=== PATIENT | female | born 1990 | race Caucasian/White ===

== ENCOUNTER → 2017-07-25 | Outpatient (CLI) | payer OTHER ==
[~2017-07-25] MED LIST: MOTR200T44 PO; STUACAP PO; TYLE167L PO
--- NOTE | 2017-07-25 14:47 | REP ---
OBSTETRIC SONOGRAPHY: HISTORY: Supervision of for anatomy followup. Third trimester. FINDINGS: Scanning through the gravid uterus demonstrates a viable single intrauterine gestation in a cephalic lie. motion is observed and heart rate is recorder 143 beats per minute. An anterior grade 1 placenta is seen without evidence of previa or abruption. Closed cervical length measured transabdominally is 4.0 cm. No extrauterine abnormality is observed. Umbilical cord is seen draping across the neck. The following anatomic structures are identified today and felt to be unremarkable: cranium, cavum, cerebellum and posterior fossa, lungs, left and right ventricular cardiac outflow tract views, diaphragm, left-sided stomach, three-vessel cord, kidneys and bladder, spine. The following additional anatomic structures are less than optimally seen due to position and advanced gestational age: Choroid plexus, facial profile, four-chamber heart view, abdominal wall cord insertion, and upper and lower extremities. Biometry Chart: BPD 7.4 cm = 29 weeks 5 days HC 27.5 cm = 30 weeks 1 day AC 26.5 cm = 30 weeks 5 days FL 6.1 cm = 31 weeks 5 days HL 5.4 cm = 31 weeks 4 days HC/AC ratio normal 1.04. Cephalic index normal 0.74. Estimated weight 1654 grams, 3 pounds 10 ounces, 48th percentile for 30 weeks 4 days. ZENON normal 12.8 cm. S/D ratio in the umbilical cord artery by Doppler is normal at 2.58. IMPRESSION: Viable single intrauterine gestation at 30 weeks 5 days by today's sonographic criteria. MAC by today's sonography is September 28, 2017. Signed by John Chow MD 07/25/2017 04:17 P
== END ==
LOC: M RAD 12:23
PROVIDERS: ATTEND Advanced Practice Midwife
DX: Z36.89 Encounter for other specified antenatal screening (principal); Z3A.30 30 weeks gestation of pregnancy

== ENCOUNTER → 2017-07-28 | Outpatient (REF) | payer OTHER | LOC: M LAB REF 17:05 | PROVIDERS: ATTEND Advanced Practice Midwife | DX: Z34.83 Encounter for supervision of other normal pregnancy, third trimester (principal) ==

== ENCOUNTER 2017-08-30 12:56 | Outpatient (CLI) | payer OTHER | END 2017-08-30 15:00 | disposition home or self-care (01) | LOC: M LDO 12:56 | DX: O99.89 Other specified diseases and conditions complicating pregnancy, childbirth and the puerperium (principal); M54.5 Low back pain; Z87.59 Personal history of other complications of pregnancy, childbirth and the puerperium; O99.343 Other mental disorders complicating pregnancy, third trimester; O99.513 Diseases of the respiratory system complicating pregnancy, third trimester; Z3A.35 35 weeks gestation of pregnancy ==

== ENCOUNTER → 2017-08-30 | Outpatient (CLI) | payer OTHER ==
[2017-08-30 12:43] LABS: BASO # 0.1 10^3/uL (0.0-0.2); BASO % 0.5 % (0.0-1.0); EOS # 0.2 10^3/uL (0.0-0.50); EOS % 1.5 % (0.0-3.0); HEMATOCRIT 38.7 % (36.0-47.0); HEMOGLOBIN 12.9 g/dl (12.0-16.0); IMMATURE GRANULOCYTE # 0.3 10^3/uL (0-0); IMMATURE GRANULOCYTE % 2.3 % (0-0); LYMPH # 1.9 10^3/uL (1.5-6.5); LYMPH % 16.5 % (24.0-44.0); MEAN CORPUSCULAR HEMOGLOBIN 30.1 pg (27.0-33.0); MEAN CORPUSCULAR HGB CONC 33.3 g/dl (32.0-36.5); MEAN CORPUSCULAR VOLUME 90.4 fl (80.0-96.0); MONO % 8.5 % (0.0-5.0); NEUTROPHILS % 70.7 % (36.0-66.0); PLATELET COUNT, AUTOMATED 190 10^3/uL (150-450); RED BLOOD COUNT 4.28 10^6/uL (4.00-5.40); RED CELL DISTRIBUTION WIDTH 13.9 % (11.5-14.5); WHITE BLOOD COUNT 11.3 10^3/uL (4.0-10.0)
[2017-08-30 12:59] LABS: TOTAL PROTEIN,RANDOM URINE 11.1 MG/DL (0.0-12.0)
[2017-08-30 13:05] LABS: ALT/SGPT 23 U/L (12-78); AST/SGOT 16 U/L (7-37); BILIRUBIN,TOTAL 0.3 MG/DL (0.2-1.0); CREATININE FOR GFR 0.58 MG/DL (0.55-1.02); GLOMERULAR FILTRATION RATE > 60.0 (>60); LDH LACTATE DEHYDROGENASE 144 U/L (84-246); URIC ACID 3.7 MG/DL (2.6-6.0)
== END ==
LOC: M LAB 12:22
DX: O14.95 Unspecified pre-eclampsia, complicating the puerperium (principal)
CPT/HCPCS: 84460

== ENCOUNTER → 2017-09-01 | Outpatient (REF) | payer OTHER ==
[2017-09-01 18:36] LABS: TOTAL PROTEIN,RANDOM URINE 12.5 MG/DL (0.0-12.0)
== END ==
LOC: M LAB REF 16:56
DX: Z34.83 Encounter for supervision of other normal pregnancy, third trimester (principal)

== ENCOUNTER → 2017-09-04 | Outpatient (REF) | payer OTHER, MEDICAID | LOC: M LAB REF 13:09 | DX: Z34.83 Encounter for supervision of other normal pregnancy, third trimester (principal) ==

== ENCOUNTER → 2017-09-04 | Outpatient (CLI) | payer OTHER | LOC: M RAD 12:21 | DX: Z34.83 Encounter for supervision of other normal pregnancy, third trimester (principal); Z3A.36 36 weeks gestation of pregnancy | CPT/HCPCS: 76816 ==

== ENCOUNTER 2017-09-21 06:11 | Inpatient (IN) | payer OTHER, MEDICAID ==
[2017-09-21] MEDS: LACTATED RINGER'S 1000 ML IV (07:26)
[2017-09-21] MEDS: LR 1,000 ML IV (07:59)
[2017-09-21 08:11] LABS: HEMATOCRIT 39.9 % (36.0-47.0); HEMOGLOBIN 13.5 g/dl (12.0-16.0); MEAN CORPUSCULAR HEMOGLOBIN 30.3 pg (27.0-33.0); MEAN CORPUSCULAR HGB CONC 33.8 g/dl (32.0-36.5); MEAN CORPUSCULAR VOLUME 89.5 fl (80.0-96.0); PLATELET COUNT, AUTOMATED 195 10^3/uL (150-450); RED BLOOD COUNT 4.46 10^6/uL (4.00-5.40); RED CELL DISTRIBUTION WIDTH 13.8 % (11.5-14.5); WHITE BLOOD COUNT 12.3 10^3/uL (4.0-10.0)
[2017-09-21] MEDS: PRENATAL VITAMINS CHEWABLE TABLET PO (09:00)
[2017-09-21] MEDS: OXYTOCIN DRIP 30 UNITS in APPROPRIATE DILUENT 1 EA IV ×2 (10:27→14:54)
[2017-09-21] MEDS: PROMETHAZINE INJ 25 MG/ML VIAL (J2550) IV (11:32)
[2017-09-21] MEDS: BUTORPHANOL 2 MG/ML INJ (J0595) IV (11:33)
[2017-09-21] MEDS ORDERED: OXYTOCIN 30 UNITS IN 0.9% NaCl 500ML IV BAG (J2590) As Ordered (14:40)
[2017-09-21] MEDS ORDERED: RHOGAM 300 MCG (1500 IU) INJ (J2790) IM (15:00)
[2017-09-21] MEDS ORDERED: IBUPROFEN 800 MG TAB PO (15:00)
[2017-09-21] MEDS ORDERED: ONDANSETRON 4MG/2ML VIAL (J2405) IV (15:00)
[2017-09-21] MEDS ORDERED: DIBUCAINE 1% OINTMENT 30GM TOP (15:00)
[2017-09-21] MEDS ORDERED: ACETAMINOPHEN 500 MG TAB PO (15:00)
[2017-09-21] MEDS ORDERED: MEASLES,MUMPS,RUBELLA VACCINE INJ (MMR-II) (90707) SC (15:00)
[2017-09-21] MEDS ORDERED: DOCUSATE SODIUM 100 MG CAP PO (15:00)
[2017-09-21] MEDS: LIDOCAINE 1% MDV INJ 50 ML VIAL INFIL (15:00)
[2017-09-21] MEDS ORDERED: PROMETHAZINE 25 MG TAB PO (15:00)
[2017-09-21] MEDS: miSOPROStol 200 MCG TAB (S0191) PR (15:00)
[2017-09-22] MEDS: FAMOTIDINE 20 MG TAB PO ×2 (01:37→08:07)
[2017-09-22 06:42] LABS: HEMATOCRIT 32.1 % (36.0-47.0); MEAN CORPUSCULAR HGB CONC 33.3 g/dl (32.0-36.5); MEAN CORPUSCULAR VOLUME 89.9 fl (80.0-96.0); PLATELET COUNT, AUTOMATED 177 10^3/uL (150-450); RED BLOOD COUNT 3.57 10^6/uL (4.00-5.40); RED CELL DISTRIBUTION WIDTH 13.9 % (11.5-14.5); WHITE BLOOD COUNT 15.7 10^3/uL (4.0-10.0)
[2017-09-22 06:49] LABS: HEMOGLOBIN 10.7 g/dl (12.0-16.0)
[2017-09-22] MEDS: PRENATAL VITAMINS CHEWABLE TABLET PO (09:00)
== END 2017-09-22 19:00 | disposition home or self-care (01) | DRG 560 ==
LOC: M LDO 06:11 → M LDI 08:23 → M OBS 16:53
PROVIDERS: Obstetrics & Gynecology
PROC: 10E0XZZ Delivery of Products of Conception, External Approach (ICD-10-PCS; principal; 2017-09-21)
PROC: 0HQ9XZZ Repair Perineum Skin, External Approach (ICD-10-PCS; 2017-09-21)
DX: O42.02 Full-term premature rupture of membranes, onset of labor within 24 hours of rupture (principal); O72.1 Other immediate postpartum hemorrhage; Z3A.38 38 weeks gestation of pregnancy; O70.0 First degree perineal laceration during delivery; O69.1XX0 Labor and delivery complicated by cord around neck, with compression, not applicable or unspecified; Z37.0 Single live birth

== ENCOUNTER → 2018-05-22 | Outpatient (REF) | payer OTHER, SELFPAY ==
[2018-05-22 23:42] LABS: CHLAMYDIA DNA AMPLIFICATION NEGATIVE (NEGATIVE); GC DNA AMPLIFICATION NEGATIVE (NEGATIVE)
== END ==
LOC: M LAB REF 17:16
DX: Z11.3 Encounter for screening for infections with a predominantly sexual mode of transmission (principal)
CPT/HCPCS: 87591

== ENCOUNTER 2018-05-30 12:41 | Outpatient (RCR) | payer BC | END 2018-06-27 | LOC: M PT 12:41 | DX: N94.10 Unspecified dyspareunia (principal) ==

== ENCOUNTER 2018-07-04 13:22 | Outpatient (RCR) | payer BC | END 2018-07-27 | LOC: M PT 13:22 | DX: N94.10 Unspecified dyspareunia (principal) ==

== ENCOUNTER 2018-08-01 15:19 | Outpatient (RCR) | payer BC ==
[~2018-08-01 15:19] MED LIST changes: +COLA100C5 PO; +FAMO20TA PO; +PRENTAB9 PO; +RANI15TA PO; +TYLE325T5 PO
== END 2018-08-27 ==
LOC: M PT 15:19
PROVIDERS: ATTEND Advanced Practice Midwife
DX: N94.10 Unspecified dyspareunia (principal)

== ENCOUNTER → 2018-09-14 | Outpatient (CLI) | payer MEDICAID ==
--- NOTE | 2018-09-14 16:52 | REP ---
None of the pelvic ultrasound History: Pain The uterus is normal in echogenicity. The uterus measures 4.2 cm in transverse by 3.5 cm in AP by 8.7 cm in cephalocaudal dimensions. The right ovary measures 2.4 x 1.5 x 1.8 cm. Left ovary measures 3.6 x 1.5 x 2.3 cm. Small bilateral follicles are present in the ovaries. Blood flow is present in the ovaries. There is no fluid in the cul-de-sac. Impression: Normal pelvic ultrasound. Electronically Signed by Cirilo Reeder MD 09/14/2018 04:43 P
== END ==
LOC: M SMT 13:40
PROVIDERS: ATTEND Advanced Practice Midwife
DX: R10.2 Pelvic and perineal pain (principal)

== ENCOUNTER → 2018-11-17 | Outpatient (REF) | payer OTHER ==
[2018-11-18 20:40] LABS: CHLAMYDIA DNA AMPLIFICATION NEGATIVE (NEGATIVE); GC DNA AMPLIFICATION NEGATIVE (NEGATIVE)
== END ==
LOC: M SFHCLERA 17:49
PROVIDERS: ATTEND Physician Assistant
DX: R10.2 Pelvic and perineal pain (principal)

== ENCOUNTER → 2018-11-17 | Outpatient (CLI) | payer MEDICAID, OTHER ==
--- NOTE | 2018-11-18 09:54 | REP ---
KUB ABDOMEN AND PELVIS: KUB film of abdomen and pelvis performed. Moderate fecal material seen throughout the colon. There is no evidence of small bowel obstruction. No abnormal calcifications are seen in the abdomen or pelvis. Visualized osseous structures are unremarkable. IMPRESSION: Moderate fecal retention. No abnormal calcifications visualized. Electronically Signed by Juan Alberto Valenzuela MD 11/18/2018 10:39 A
== END ==
LOC: M LRY 17:51
PROVIDERS: ATTEND Physician Assistant
DX: R19.8 Other specified symptoms and signs involving the digestive system and abdomen (principal)

== ENCOUNTER → 2019-03-21 | Outpatient (CLI) | payer OTHER ==
[2019-03-22 11:43] LABS: BASO # 0.1 10^3/uL (0.0-0.2); BASO % 0.9 % (0.0-1.0); EOS # 0.1 10^3/uL (0.0-0.50); EOS % 2.4 % (0.0-3.0); HEMATOCRIT 39.4 % (36.0-47.0); HEMOGLOBIN 12.5 g/dl (12.0-15.5); LYMPH # 1.6 10^3/uL (1.5-6.5); LYMPH % 28.2 % (24.0-44.0); MEAN CORPUSCULAR HEMOGLOBIN 29.7 pg (27.0-33.0); MEAN CORPUSCULAR HGB CONC 31.7 g/dl (32.0-36.5); MEAN CORPUSCULAR VOLUME 93.6 fl (80.0-96.0); MONO # 0.5 10^3/uL (0.0-0.8); MONO % 9.2 % (0.0-5.0); NEUTROPHILS # 3.3 10^3/uL (1.8-7.7); NEUTROPHILS % 59.1 % (36.0-66.0); PLATELET COUNT, AUTOMATED 170 10^3/uL (150-450); RED BLOOD COUNT 4.21 10^6/uL (4.00-5.40); WHITE BLOOD COUNT 5.5 10^3/uL (4.0-10.0)
[2019-03-22 11:49] LABS: ALT/SGPT 30 U/L (12-78); BILIRUBIN,TOTAL 0.3 MG/DL (0.2-1.0); CREATININE FOR GFR 0.69 MG/DL (0.55-1.30); GLOMERULAR FILTRATION RATE > 60.0 (>60); LDH LACTATE DEHYDROGENASE 127 U/L (84-246); URIC ACID 2.6 MG/DL (2.6-6.0)
[2019-03-22 12:01] LABS: TOTAL PROTEIN,RANDOM URINE 124.2 MG/DL (0.0-12.0)
[2019-03-22 12:08] LABS: RUBELLA IgG QUALITATIVE IMMUNE (IMMUNE)
[2019-03-22 12:37] LABS: HEPATITIS C VIRUS ABY INDEX 0.1 INDEX (<0.8); HIV 1&2 SCREEN CENTAUR NEGATIVE (NEGATIVE)
[2019-03-22 13:14] LABS: CHLAMYDIA DNA AMPLIFICATION NEGATIVE (NEGATIVE); GC DNA AMPLIFICATION NEGATIVE (NEGATIVE)
== END ==
LOC: M SMT 15:22
PROVIDERS: ATTEND Advanced Practice Midwife
DX: Z34.81 Encounter for supervision of other normal pregnancy, first trimester (principal); Z3A.09 9 weeks gestation of pregnancy

== ENCOUNTER → 2019-04-23 | Outpatient (REF) | payer OTHER | LOC: M LAB REF 16:43 | PROVIDERS: ATTEND Advanced Practice Midwife | DX: Z34.81 Encounter for supervision of other normal pregnancy, first trimester (principal) ==

== ENCOUNTER → 2019-05-31 | Outpatient (CLI) | payer OTHER ==
--- NOTE | 2019-05-31 16:30 | REP ---
OB ULTRASOUND: Real-time sonographic evaluation of the gravid uterus performed. There is a single living intrauterine gestation, estimated gestational age 19 weeks 1 days, EDC 10/24/2019. Today's measurements indicate appropriate growth. BPD 43 mm = 19 weeks 0 days, 47th percentile HC 157 mm = 18 weeks 4 days, 34th percentile AC 140 mm = 19 weeks 3 days, 56th percentile FL 28 mm = 18 weeks 4 days, 37th percentile HC/AC ratio 1.12, within normal range. Estimated weight 266 grams, 42nd percentile. Cervix is closed and measures 3.5 cm in length. heart rate 155 beats per minute. SEEN/GROSSLY UNREMARKABLE Lateral ventricles yes Posterior fossa yes Upper lip yes Four-chamber heart yes LVOT yes RVOT yes Stomach yes Cord insertion yes Three vessel cord yes Kidneys yes Bladder yes Spine no position: Vertex. Placenta: Anterior and grade 0 with no previa or abruption. Amniotic fluid: Within normal limits. Electronically Signed by Juan Alberto Valenzuela MD 06/03/2019 04:59 P
== END ==
LOC: M RAD 09:15
PROVIDERS: ATTEND Advanced Practice Midwife
DX: Z34.82 Encounter for supervision of other normal pregnancy, second trimester (principal)

== ENCOUNTER 2019-07-18 18:37 | Outpatient (CLI) | payer OTHER ==
[~2019-07-18] VITALS: Ht 177.8 cm; Wt 77.0 kg
[2019-07-18 18:56] VITALS: BP 111/55
== END 2019-07-18 20:12 | disposition home or self-care (01) ==
LOC: M LDO 18:37
PROVIDERS: ATTEND Obstetrics & Gynecology
DX: O26.892 Other specified pregnancy related conditions, second trimester (principal); R10.2 Pelvic and perineal pain; Z3A.26 26 weeks gestation of pregnancy

== ENCOUNTER → 2019-07-29 | Outpatient (CLI) | payer OTHER ==
[2019-07-29 15:42] LABS: HEMATOCRIT 35.9 % (36.0-47.0); HEMOGLOBIN 11.7 g/dl (12.0-15.5); MEAN CORPUSCULAR HEMOGLOBIN 30.7 pg (27.0-33.0); MEAN CORPUSCULAR HGB CONC 32.6 g/dl (32.0-36.5); MEAN CORPUSCULAR VOLUME 94.2 fl (80.0-96.0); PLATELET COUNT, AUTOMATED 196 10^3/uL (150-450); RED BLOOD COUNT 3.81 10^6/uL (4.00-5.40); WHITE BLOOD COUNT 9.3 10^3/uL (4.0-10.0)
== END ==
LOC: M PLALAB 13:10
PROVIDERS: ATTEND Advanced Practice Midwife
DX: Z36.89 Encounter for other specified antenatal screening (principal); Z3A.00 Weeks of gestation of pregnancy not specified

== ENCOUNTER → 2019-09-20 | Outpatient (REF) | payer OTHER | LOC: M SFHCWAGY 17:15 | PROVIDERS: ATTEND Advanced Practice Midwife | DX: Z34.83 Encounter for supervision of other normal pregnancy, third trimester (principal) ==

== ENCOUNTER → 2019-10-04 | Outpatient (CLI) | payer OTHER | LOC: M PLALAB 11:21 | PROVIDERS: ATTEND Advanced Practice Midwife | DX: Z34.83 Encounter for supervision of other normal pregnancy, third trimester (principal); Z3A.00 Weeks of gestation of pregnancy not specified ==

== ENCOUNTER 2019-10-12 10:38 | Outpatient (CLI) | payer OTHER ==
[~2019-10-12] VITALS: Ht 177.8 cm; Wt 87.6 kg
[2019-10-12 11:02] VITALS: BP 118/58
[2019-10-12 11:45] LABS: APPEARANCE, URINE CLEAR (CLEAR); BACTERIA, URINE AUTO 1+ (NEGATIVE); BILIRUBIN, URINE AUTO NEGATIVE (NEGATIVE); BLOOD, URINE BLOOD NEGATIVE (NEGATIVE); COLOR, URINE YELLOW (YELLOW); GLUCOSE, URINE (UA) AUTO NEGATIVE (NEGATIVE); KETONE, URINE AUTO NEGATIVE (NEGATIVE); LEUKOCYTE ESTERASE, URINE AUTO NEGATIVE (NEGATIVE); MUCUS, URINE SMALL (NEGATIVE); NITRITE, URINE AUTO NEGATIVE (NEGATIVE); PROTEIN, URINE AUTO NEGATIVE (NEGATIVE); RBC, URINE AUTO 1 /HPF (0-3); SPECIFIC GRAVITY URINE AUTO 1.009 (1.002-1.035); SQUAMOUS EPITHELIAL CELL UR AU 0 /HPF (0-6); UROBILINOGEN, URINE AUTO 0.2 mg/dL (0.0-2.0); WBC, URINE AUTO 0 /HPF (0-3)
[2019-10-12 12:21] VITALS: BP 119/66
== END 2019-10-12 12:39 | disposition home or self-care (01) ==
LOC: M LDO 10:38
PROVIDERS: ATTEND Obstetrics & Gynecology
DX: O26.899 Other specified pregnancy related conditions, unspecified trimester (principal); M54.5 Low back pain; Z3A.38 38 weeks gestation of pregnancy

== ENCOUNTER 2019-10-26 06:20 | Inpatient (IN) | payer MEDICAID, OTHER ==
[2019-10-26] VITALS (24 sets, daily range): BP systolic 122–161; BP diastolic 56–94
[~2019-10-26] VITALS: Ht 177.8 cm; Wt 89.1 kg
[2019-10-26] MEDS ORDERED: PREN29TA4 PO (06:43)
[2019-10-26 10:21] LABS: HEMOGLOBIN 11.7 g/dl (12.0-15.5); MEAN CORPUSCULAR HEMOGLOBIN 29.8 pg (27.0-33.0); MEAN CORPUSCULAR HGB CONC 33.4 g/dl (32.0-36.5); MEAN CORPUSCULAR VOLUME 89.3 fl (80.0-96.0); PLATELET COUNT, AUTOMATED 179 10^3/uL (150-450); RED BLOOD COUNT 3.92 10^6/uL (4.00-5.40); WHITE BLOOD COUNT 11.9 10^3/uL (4.0-10.0)
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
[2019-10-26] MEDS ORDERED: LR 1,000 ML IV SCH (11:37)
[2019-10-26] MEDS ORDERED: OXYTOCIN DRIP 30 UNITS in IV 1 EA IV SCH (11:45)
[2019-10-26] MEDS ORDERED: PROMETHAZINE INJ 25 MG/ML VIAL (J2550) IV ONE (12:00)
[2019-10-26] MEDS ORDERED: BUTORPHANOL 2 MG/ML INJ (J0595) IV ONE (12:00)
[2019-10-26] MEDS ORDERED: DIBUCAINE 1% OINTMENT 30GM TOP PRN (19:45)
[2019-10-26] MEDS ORDERED: MEASLES,MUMPS,RUBELLA VACCINE INJ (MMR-II) (90707) SC SCH (19:45)
[2019-10-26] MEDS ORDERED: ONDANSETRON 4MG/2ML VIAL (J2405) IV PRN (19:45)
[2019-10-26] MEDS ORDERED: ACETAMINOPHEN TAB 650MG DOSE (2X325MG) PO PRN (19:45)
[2019-10-26] MEDS ORDERED: DOCUSATE SODIUM 100 MG CAP PO PRN (19:45)
[2019-10-26] MEDS ORDERED: METHYLERGONOVINE MALEATE 0.2 MG TAB PO PRN (19:45)
[2019-10-26] MEDS ORDERED: OXYTOCIN DRIP 30 UNITS in IV 1 EA IV ONE (19:45)
[2019-10-26] MEDS ORDERED: IBUPROFEN 600 MG TAB PO PRN (19:45)
[2019-10-26] MEDS ORDERED: RHOGAM 300 MCG (1500 IU) INJ (J2790) IM SCH (19:45)
[2019-10-26] MEDS ORDERED: IBUPROFEN 800 MG TAB PO PRN (19:45)
[2019-10-26] MEDS ORDERED: ACETAMINOPHEN 500 MG TAB PO PRN (19:45)
[2019-10-27 06:00] VITALS: BP 111/71
[2019-10-27] MEDS: PRENATAL VITAMINS CHEWABLE TABLET PO SCH (08:56)
[2019-10-27 18:00] VITALS: BP 123/71
[2019-10-28] MEDS ORDERED: IBUP80TA PO (04:30)
[2019-10-28] MEDS ORDERED: ACET-683 PO (04:30)
[2019-10-28 05:54] VITALS: BP 116/66
--- NOTE | 2019-10-28 07:11 | DN ---
DATE OF DELIVERY: 10/26/2019 PREDELIVERY DIAGNOSIS: Term labor. POSTDELIVERY DIAGNOSIS: Delivered. PROCEDURE: Spontaneous vaginal delivery. DATA TYPIST: Cirilo Lentz MD ANESTHESIA: None. ESTIMATED BLOOD LOSS: 300 mL. FINDINGS: 7-pound 1-ounce male with scores 8 and 9. DELIVERY SUMMARY: After a short second phase, the patient had spontaneous delivery of a 7-pound 1-ounce male with scores 8 and 9 under no delivery anesthesia. There was no nuchal cord. The shoulders delivered with ease. Placenta delivered spontaneously and appeared to be intact. The patient received intravenous (IV) pitocin after delivery of placenta. There were no vaginal lacerations present. Sponge counts were correct.
[2019-10-28] MEDS: PRENATAL VITAMINS CHEWABLE TABLET PO SCH (11:37)
== END 2019-10-28 14:45 | disposition home or self-care (01) | DRG 560 ==
LOC: M LDO 06:20 → M LDI 09:24 → M OBS 21:48
PROVIDERS: ADMIT Specialist; ATTEND Specialist
PROC: 10E0XZZ Delivery of Products of Conception, External Approach (ICD-10-PCS; principal; 2019-10-26)
DX: O48.0 Post-term pregnancy (principal); Z3A.40 40 weeks gestation of pregnancy; Z37.0 Single live birth

== ENCOUNTER → 2020-04-22 | Outpatient (CLI) | payer OTHER ==
[~2020-04-22] MED LIST changes: +ACET-683 PO; +IBUP80TA PO; +PREN29TA4 PO; +REGL10TA6 PO
[2020-04-22 16:05] LABS: BASO # 0.1 10^3/uL (0.0-0.2); BASO % 0.9 % (0.0-1.0); EOS # 0.3 10^3/uL (0.0-0.5); EOS % 4.1 % (0.0-3.0); HEMATOCRIT 40.4 % (36.0-47.0); HEMOGLOBIN 13.3 g/dl (12.0-15.5); LYMPH # 1.8 10^3/uL (1.5-5.0); LYMPH % 27.6 % (24.0-44.0); MEAN CORPUSCULAR HEMOGLOBIN 29.2 pg (27.0-33.0); MEAN CORPUSCULAR HGB CONC 32.9 g/dl (32.0-36.5); MEAN CORPUSCULAR VOLUME 88.8 fl (80.0-96.0); MONO # 0.7 10^3/uL (0.0-0.8); MONO % 9.8 % (0.0-5.0); NEUTROPHILS # 3.8 10^3/uL (1.5-8.5); NEUTROPHILS % 57.3 % (36.0-66.0); PLATELET COUNT, AUTOMATED 216 10^3/uL (150-450); RED BLOOD COUNT 4.55 10^6/uL (4.00-5.40); WHITE BLOOD COUNT 6.6 10^3/uL (4.0-10.0)
[2020-04-22 16:08] LABS: ALT/SGPT 23 U/L (12-78); BILIRUBIN,TOTAL 0.2 MG/DL (0.2-1.0); CREATININE FOR GFR 0.81 MG/DL (0.55-1.30); GLOMERULAR FILTRATION RATE > 60.0 (>60); LDH LACTATE DEHYDROGENASE 124 U/L (84-246); URIC ACID 3.1 MG/DL (2.6-6.0)
[2020-04-22 16:36] LABS: TOTAL PROTEIN,RANDOM URINE 14.8 MG/DL (0.0-12.0)
[2020-04-22 17:00] LABS: HEPATITIS C VIRUS ABY INDEX 0.3 INDEX (<0.8)
[2020-04-22 17:01] LABS: HIV 1&2 SCREEN CENTAUR NEGATIVE (NEGATIVE)
[2020-04-22 17:39] LABS: CHLAMYDIA DNA AMPLIFICATION NEGATIVE (NEGATIVE); GC DNA AMPLIFICATION NEGATIVE (NEGATIVE)
== END ==
LOC: M PLALAB 14:09
PROVIDERS: ATTEND Advanced Practice Midwife
DX: Z34.81 Encounter for supervision of other normal pregnancy, first trimester (principal); Z36.89 Encounter for other specified antenatal screening

== ENCOUNTER 2020-05-04 22:05 | Emergency (ER) | payer OTHER ==
[~2020-05-04] VITALS: Ht 177.8 cm; Wt 86.0 kg
[~2020-05-04 22:05] MED LIST changes: -REGL10TA6 PO
[2020-05-04] MEDS ORDERED: METOCLOPRAMIDE INJ 10MG/2ML VIAL (J2765 PER 1) IV ONE (22:30)
[2020-05-04] MEDS ORDERED: NS 1,000 ML IV ONE (22:30)
[2020-05-04 22:50] LABS: BASO # 0.1 10^3/uL (0.0-0.2); BASO % 0.8 % (0.0-1.0); EOS # 0.1 10^3/uL (0.0-0.5); EOS % 1.7 % (0.0-3.0); HEMATOCRIT 38.9 % (36.0-47.0); HEMOGLOBIN 13.1 g/dl (12.0-15.5); LYMPH # 1.8 10^3/uL (1.5-5.0); LYMPH % 22.7 % (24.0-44.0); MEAN CORPUSCULAR HEMOGLOBIN 29.4 pg (27.0-33.0); MEAN CORPUSCULAR HGB CONC 33.7 g/dl (32.0-36.5); MEAN CORPUSCULAR VOLUME 87.2 fl (80.0-96.0); MONO # 0.6 10^3/uL (0.0-0.8); MONO % 7.8 % (0.0-5.0); NEUTROPHILS # 5.2 10^3/uL (1.5-8.5); NEUTROPHILS % 66.6 % (36.0-66.0); PLATELET COUNT, AUTOMATED 220 10^3/uL (150-450); RED BLOOD COUNT 4.46 10^6/uL (4.00-5.40); WHITE BLOOD COUNT 7.9 10^3/uL (4.0-10.0)
[2020-05-04 23:24] LABS: ALBUMIN 3.7 GM/DL (3.2-5.2); ALT/SGPT 22 U/L (12-78); BILIRUBIN,DIRECT 0.2 MG/DL (0.0-0.2); BILIRUBIN,TOTAL 0.4 MG/DL (0.2-1.0); BLOOD UREA NITROGEN 8 MG/DL (7-18); CARBON DIOXIDE LEVEL 25 MEQ/L (21-32); CHLORIDE LEVEL 104 MEQ/L (98-107); CREATININE FOR GFR 0.69 MG/DL (0.55-1.30); GLOMERULAR FILTRATION RATE > 60.0 (>60); GLUCOSE, FASTING 89 MG/DL (70-100); HCG, SERUM QUANTITATIVE 109968 MIU/ML; LIPASE 60 U/L (73-393); POTASSIUM SERUM 3.6 MEQ/L (3.5-5.1); SODIUM LEVEL 134 MEQ/L (136-145); TOTAL PROTEIN 7.4 GM/DL (6.4-8.2)
--- NOTE | 2020-05-04 23:32 | REPVR ---
PROCEDURE INFORMATION: Exam: US First Trimester, Transabdominal Exam date and time: 05/04/2020 11:20 PM Age: 29 years old Clinical indication: complicated by abdominal or pelvic pain; Generalized abdominal pain; First trimester; Gestational age or lmp: 02/28/20; ; Additional info: Abd pain preg eval for iup TECHNIQUE: Imaging protocol: Real-time transabdominal obstetrical ultrasound of the maternal pelvis and a first trimester , less than 14 weeks 0 days, with image documentation. COMPARISON: No relevant prior studies available. FINDINGS: Gestation: Gestational sac within the fundal endometrium with pole and yolk sac. Embryonic/ heart rate: heartbeat of 167 bpm. Placenta: Unremarkable. No subchorionic bleed. Amniotic fluid: Amniotic fluid is normal for gestational age. BIOMETRY: [place]-Rump length: The crown-rump length measures 2.2 cm suggesting an age of 9 weeks 0 days. The EDC is 12/04/2020. MATERNAL: Uterus: The uterus measures 11.4 cm in its cephalocaudad dimension and 7.1 cm in its AP dimension. Cervix: Unremarkable. Right adnexa: The right ovary measures 2.6 x 2.9 x 1.8 cm and demonstrates arterial and venous blood flow. Left adnexa: The left ovary measures 3.7 x 3.6 x 2.4 cm and demonstrates arterial and venous blood flow and a cyst measuring 2.4 x 2.0 x 2.0 cm. Intraperitoneal space: No intraperitoneal free fluid. IMPRESSION: 1. Single live intrauterine gestation with an estimated age of 9 weeks 0 days. The EDC is 12/04/2020. 2. Left ovarian cyst measuring 2.4 x 2.0 x 2.0 cm. Electronically signed by: Jona Pearson On 05/04/2020 23:31:52 PM
[2020-05-05 01:04] LABS: APPEARANCE, URINE CLEAR (CLEAR); BACTERIA, URINE AUTO NEGATIVE (NEGATIVE); BILIRUBIN, URINE AUTO NEGATIVE (NEGATIVE); BLOOD, URINE BLOOD NEGATIVE (NEGATIVE); COLOR, URINE YELLOW (YELLOW); GLUCOSE, URINE (UA) AUTO NEGATIVE (NEGATIVE); KETONE, URINE AUTO 2+ mg/dL (NEGATIVE); LEUKOCYTE ESTERASE, URINE AUTO NEGATIVE (NEGATIVE); MUCUS, URINE MODERATE (NEGATIVE); NITRITE, URINE AUTO NEGATIVE (NEGATIVE); PROTEIN, URINE AUTO NEGATIVE (NEGATIVE); RBC, URINE AUTO 1 /HPF (0-3); SPECIFIC GRAVITY URINE AUTO 1.023 (1.002-1.035); SQUAMOUS EPITHELIAL CELL UR AU 1 /HPF (0-6); UROBILINOGEN, URINE AUTO 0.2 mg/dL (0.0-2.0); WBC, URINE AUTO 1 /HPF (0-3)
[2020-05-05 01:49] VITALS: BP 122/68
[2020-05-05] MEDS ORDERED: REGL10TA6 PO (01:50)
== END 2020-05-05 01:56 | disposition home or self-care (01) ==
LOC: M ED 22:05
DX: O21.9 Vomiting of pregnancy, unspecified (principal); O26.891 Other specified pregnancy related conditions, first trimester; R10.2 Pelvic and perineal pain; O99.341 Other mental disorders complicating pregnancy, first trimester; O99.511 Diseases of the respiratory system complicating pregnancy, first trimester; O34.81 Maternal care for other abnormalities of pelvic organs, first trimester; N83.202 Unspecified ovarian cyst, left side; Z3A.09 9 weeks gestation of pregnancy; Z91.040 Latex allergy status; Z79.899 Other long term (current) drug therapy
CPT/HCPCS: 76801; 80048; 80076; 81001; 83690; 84702; 85025; 86850; 86900; 86901; 87086; 87210; 93976; 96361; 96374; 99283; J2765

== ENCOUNTER → 2020-07-27 | Outpatient (CLI) | payer OTHER ==
[~2020-07-27] MED LIST changes: +REGL10TA6 PO
--- NOTE | 2020-07-27 21:29 | REP ---
INDICATION: ANATOMY COMPARISON: 05/04/2020 TECHNIQUE: Transabdominal obstetrical ultrasound with color Doppler evaluation. FINDINGS: Examination demonstrates a single live intrauterine in transverse (head to maternal right) presentation. motion is identified by technologist. Placenta is noted left lateral and grade 0 without evidence for placenta previa or abruption. Amniotic fluid volume is normal. Cervix measures 3.4 cm in length and appears closed.. Gestational age by LMP 20 weeks 1 day with MAC 12/13/2020. Gestational age by current measurements 20 weeks 5 days with MAC 12/09/2020. FHR equals 146 beats per minute. BPD: 4.9 cm there is 21 weeks 0 days HC: 18.3 cm 20 weeks 5 days AC: 15.4 cm 20 weeks 4 days FL: 3.4 cm 20 weeks 5 days HL: 3.2 cm 20 weeks 4 days HC/AC: 1.19 Estimated weight 368 grams (76thpercentile). Anatomical assessment demonstrates normal structures including cranium, choroid plexus, cavum, cerebellum/posterior fossa, facial features, lungs, four-chamber heart/ventricular outflow tracts, diaphragm, stomach, cord insertion/three-vessel cord, kidneys/bladder, spine, and extremities. IMPRESSION: Single live intrauterine in transverse lie demonstrating appropriate growth. Anatomical assessment is complete and normal. <Electronically signed by Paulie Ceja > 07/27/20 [id number]
== END ==
LOC: M WHC 12:10
PROVIDERS: ATTEND Obstetrics & Gynecology
DX: Z36.89 Encounter for other specified antenatal screening (principal); Z3A.14 14 weeks gestation of pregnancy

== ENCOUNTER → 2020-08-17 | Outpatient (REF) | payer OTHER | LOC: M PLALAB 13:23 | PROVIDERS: ATTEND Obstetrics & Gynecology | DX: Z36.9 Encounter for antenatal screening, unspecified (principal); Z3A.23 23 weeks gestation of pregnancy; Z53.9 Procedure and treatment not carried out, unspecified reason ==

== ENCOUNTER → 2020-09-15 | Outpatient (REF) | payer OTHER ==
[2020-09-15 18:13] LABS: HEMATOCRIT 36.6 % (36.0-47.0); HEMOGLOBIN 11.7 g/dl (12.0-15.5); MEAN CORPUSCULAR HEMOGLOBIN 29.3 pg (27.0-33.0); MEAN CORPUSCULAR VOLUME 91.7 fl (80.0-96.0); PLATELET COUNT, AUTOMATED 201 10^3/uL (150-450); RED BLOOD COUNT 3.99 10^6/uL (4.00-5.40); WHITE BLOOD COUNT 9.9 10^3/uL (4.0-10.0)
== END ==
LOC: M PLALAB 13:37
PROVIDERS: ATTEND Obstetrics & Gynecology
DX: Z3A.23 23 weeks gestation of pregnancy (principal)

== ENCOUNTER → 2020-09-18 | Outpatient (REF) | payer OTHER ==
[2020-09-18 18:28] LABS: HEMATOCRIT 35.4 % (36.0-47.0); HEMOGLOBIN 11.4 g/dl (12.0-15.5); MEAN CORPUSCULAR HEMOGLOBIN 29.1 pg (27.0-33.0); MEAN CORPUSCULAR HGB CONC 32.2 g/dl (32.0-36.5); MEAN CORPUSCULAR VOLUME 90.3 fl (80.0-96.0); PLATELET COUNT, AUTOMATED 201 10^3/uL (150-450); RED BLOOD COUNT 3.92 10^6/uL (4.00-5.40); WHITE BLOOD COUNT 10.3 10^3/uL (4.0-10.0)
[2020-09-18 18:56] LABS: TOTAL PROTEIN,RANDOM URINE 11.1 MG/DL (0.0-12.0)
[2020-09-18 18:56] LABS: ALT/SGPT 20 U/L (12-78); BILIRUBIN,TOTAL 0.1 MG/DL (0.2-1.0); CREATININE FOR GFR 0.62 MG/DL (0.55-1.30); GLOMERULAR FILTRATION RATE > 60.0 (>60); LDH LACTATE DEHYDROGENASE 122 U/L (84-246); URIC ACID 3.5 MG/DL (2.6-6.0)
== END ==
LOC: M PLALAB 15:06
PROVIDERS: ATTEND Advanced Practice Midwife
DX: R51.9 Headache, unspecified (principal)

== ENCOUNTER → 2020-11-13 | Outpatient (REF) | payer OTHER | LOC: M SFHCWAGY 16:41 | PROVIDERS: ATTEND Obstetrics & Gynecology | DX: Z34.93 Encounter for supervision of normal pregnancy, unspecified, third trimester (principal); Z3A.00 Weeks of gestation of pregnancy not specified ==

== ENCOUNTER 2020-12-07 08:26 | Inpatient (IN) | payer OTHER ==
[2020-12-07] VITALS (9 sets, daily range): BP systolic 131–159; BP diastolic 64–83
[~2020-12-07] VITALS: Ht 177.8 cm; Wt 99.8 kg
[2020-12-07] MEDS ORDERED: OXYTOCIN DRIP 30 UNITS in IV 1 EA IV PRN (09:20)
[2020-12-07] MEDS ORDERED: METHYLERGONOVINE MALEATE 0.2 MG/ML VIAL (J2210) IM PRN (09:20)
[2020-12-07] MEDS ORDERED: LIDOCAINE 1% MDV 20ML VIAL INFIL PRN (09:20)
[2020-12-07] MEDS ORDERED: OXYTOCIN INJ 10 UNITS/ML VIAL (J2590) IM PRN (09:20)
[2020-12-07] MEDS ORDERED: TRANEXAMIC ACID INJection 1,000 MG in NS 100 ML IV PRN (09:20)
[2020-12-07] MEDS ORDERED: CARBOPROST TROMETHAMINE 250 MCG/ML AMP IM PRN (09:20)
--- NOTE | 2020-12-07 09:26 | HPEPDOC ---
Obstetrical History & Physical General Date of Admission Dec 07, 2020 at 08:26 Primary Care Physician: CHEY ORDONEZ CNM History of Present Illness Kaylie is a 30-year-old female who is a who is 39.1 weeks gestation with an MAC of 12/13/20 based off of her LMP and consistent with her first trimester ultrasound. She initiated care in her first trimester of with WW. Her has been uncomplicated. She presents to L&D for an elective IOL. She reports active movement and occasional contractions. She denies leaking of fluid or vaginal bleeding. Chief Complaint: Induction of labor Information Provided By: Patient Age: 30 : 4 Term: 3 Pre-term: 0 Abortions: 0 Livin Care Care: Good Care Dating Final EDC: Dec 13, 2020 Final EDC by: LMP EGA at Admission: 39.1 Antepartum Course Height (inches): 70 Pre- weight (lbs.): 188 Admission Weight (lbs.): 220 Change in Weight (lbs.): 32 Past Medical History Past Obstetrical History #1: Past Obstetrical History: Primgravida Gestation: 40 Type of Delivery: Spontaneous Vaginal Del. (12/2014) Sex of : Male (weight 7 lbs 7 oz) Complications: Yes (preeclampsia) Past Obstetrical History #2: Past Obstetrical History: Multigravida Gestation: 39 Type of Delivery: Spontaneous Vaginal Del. (08/2017) Sex of : Male (weight: 7 lbs 14 oz) Complications: Yes (PPH) Past Obstetrical History #3: Past Obstetrical History: Multigravida Date of Delivery: Oct 26, 2019 Gestation: 40 Type of Delivery: Spontaneous Vaginal Del. Sex of Infant: Male (weight 7 lbs 10 oz) Complications: No NUTRITION COORDINATOR History: History of STD (chlamydia) Past Medical History Medical History IBS endometriosis Surgical History: Denies/None Family History Significant Family History: Cancer (father from prostate cancer), Diabetes, Hypertension, Other (diverticulitis) Social History Marital Status: Seperated Family situation: Spouse/partner home Psychosocial History: Anxiety, Depression * Smoker: non-smoker Alcohol: Denies Drugs: denies Allergies Coded Allergies: Latex, Natural Rubber (Verified Allergy, Mild, Rash, 10/12/19) adhesive tape (Verified Allergy, Mild, rash, 10/12/19) gluten (Verified Allergy, Unknown, 07/18/19) Physical Examination Physical Examination GENERAL: Alert and oriented times three. BREAST: . ABDOMEN: Gravid and non-tender to touch. FETUS: Is vertex (VTX) by sterile vaginal examination (SVE), fetus is vertex (VTX) by Juan. HEART RATE: Regular rate and rhythm. LUNGS: Clear to auscultation (CTA). EXTREMITIES: No edema. No clonus. Deep tendon reflexes (DTRs) + . Vital Signs/I&O Vital Signs Date Time Temp Pulse Resp B/P (MAP) Pulse Ox O2 Delivery O2 Flow Rate FiO2 12/07/20 09:00 99.1 75 18 136/78 (97) Laboratory Data 24H LABS Laboratory Tests 2 12/07/20 08:47: Serology Scanned Report Hepatitis B Testing Pertinent Laboratoy Data Blood Type: O+ RBC Antibody Screen: Negative HIV: Negative Hepatitis B: Negative Hepatitis C: Negative Rapid Plasma Reagin: Nonreactive Rubella: Immune Chlamydia/Gonorrhea: Negative Group B Streptococcus: Negative Vaginal Examination Dilation: 1cm Effacement: other (75%) Station: -2 Cervical Consistency: Medium Cervical Position: Anterior Presentation: Cephalic presentation Position: Vertex (occiput) Assessment Heart Rate (FHR): 130 Variability: Moderate Accelerations: Positive Decelerations: None Tocometer Contractions: Yes Frequency: irregular Multi-drug resistant Organism: No history of MDRO Assessment/Plan Assessment IUP at 39.1 weeks elective IOL GBS negative Category I FHR tracing Plan Admit to L&D. OOB ad garret. Diet: regular. Group B Streptococcus (GBS) negative. Labs and intravenous (IV) per unit protocol. Counseled on Cytotec and IV Pitocin for induction of labor (IOL). Anticipate cervical ripening. C-S as appropriate. CHEY ORDONEZ CNM Dec 07, 2020 09:25
[2020-12-07] MEDS ORDERED: BUTORPHANOL 2 MG/ML INJ (J0595) IV ONE ×2 (10:20→22:50)
[2020-12-07] MEDS ORDERED: PROMETHAZINE INJ 25 MG/ML VIAL (J2550) IV ONE (10:20)
[2020-12-07 10:28] LABS: HEMATOCRIT 34.3 % (36.0-47.0); HEMOGLOBIN 11.1 g/dl (12.0-15.5); MEAN CORPUSCULAR HEMOGLOBIN 27.9 pg (27.0-33.0); MEAN CORPUSCULAR HGB CONC 32.4 g/dl (32.0-36.5); MEAN CORPUSCULAR VOLUME 86.2 fl (80.0-96.0); PLATELET COUNT, AUTOMATED 221 10^3/uL (150-450); RED BLOOD COUNT 3.98 10^6/uL (4.00-5.40); WHITE BLOOD COUNT 10.5 10^3/uL (4.0-10.0)
[2020-12-07] MEDS: miSOPROStol 50MCG 1/2 TABLET PO SCH ×4 (10:29→22:30)
--- NOTE | 2020-12-07 18:38 | IPNPDOC ---
Obstetrical Progress Note Date of Service Dec 07, 2020 Subjective Patient reports she is feeling some contractions. She reports she is comfortable. Objective Vital Signs Date Time Temp Pulse Resp B/P (MAP) Pulse Ox O2 Delivery O2 Flow Rate FiO2 12/07/20 17:38 99.3 91 20 139/64 (89) Assessment Heart Rate (FHR): 135 Variability: Moderate Accelerations: Positive Decelerations: None Heart Rate Tracing: Category I Tocometer Contractions: Yes Frequency: regular (2-7 minutes) Sterile Vaginal Examination Dilation: 2cm (2-3 cm) Effacement (%): 80% Station: -2 Cervical Consistency: Soft Cervical Position: Posterior Postion/Presentation: Cephalic presentation Assessment and Plan Age: 30 : 4 Term: 3 Pre-term: 0 Abortions: 0 Livin EGA at Admission: 39.1 Status: Reassuring Group B Streptococcus: Negative Anticipate: Vaginal Delivery Additional Comments 3rd dose of Cytotec to be given. Stadol and Phenergan ordered for patient when she is uncomfortable per her request. CHEY ORDONEZ CNM Dec 07, 2020 18:38
[2020-12-08] VITALS (10 sets, daily range): BP systolic 102–160; BP diastolic 51–91
[2020-12-08] MEDS ORDERED: IBUPROFEN 800 MG TAB PO PRN (00:25)
[2020-12-08] MEDS ORDERED: ANUSOL HC CREAM 30GM TOP PRN (00:25)
[2020-12-08] MEDS ORDERED: DOCUSATE SODIUM 100MG CAPSULE PO PRN (00:25)
[2020-12-08] MEDS ORDERED: OXYTOCIN DRIP 30 UNITS in IV 1 EA IV SCH (00:25)
[2020-12-08] MEDS ORDERED: IBUPROFEN 600MG TAB PO PRN (00:25)
[2020-12-08] MEDS ORDERED: MEASLES,MUMPS,RUBELLA VACCINE INJ (MMR-II) (90707) SC SCH (00:25)
[2020-12-08] MEDS ORDERED: DIBUCAINE 1% OINTMENT 30GM TOP PRN (00:25)
[2020-12-08] MEDS ORDERED: ACETAMINOPHEN 500 MG TAB PO PRN (00:25)
[2020-12-08] MEDS ORDERED: RHOGAM 300 MCG (1500 IU) INJ (J2790) IM SCH (00:25)
[2020-12-08] MEDS ORDERED: METHYLERGONOVINE MALEATE 0.2 MG TAB PO PRN (00:25)
[2020-12-08] MEDS ORDERED: ACETAMINOPHEN TAB 650MG DOSE (2X325MG) PO PRN (00:25)
--- NOTE | 2020-12-08 00:33 | DNPDOC ---
[facility] Delivery Note Delivery Note DATE OF DELIVERY: 12/07/20 at 2359 PREDELIVERY DIAGNOSIS: 39-2/7 weeks' gestation and labor. POST DELIVERY DIAGNOSIS: Delivered. PROCEDURE: Spontaneous vaginal delivery. MOLD MACHINE OPERATOR: Chey Jo CNM, SOURAV ANESTHESIA: none. ESTIMATED BLOOD LOSS: 200 mL. FINDINGS: 7 pounds 4 ounces; 3290 grams; female infant, Score 9/9. DELIVERY SUMMARY: Kaylie is a 30-year-old female who is now a who presented to L&D for an induction of labor-elective. She received 3 doses of Cytotec for her induction and requested IV pain medication for pain management. She progressed to fully dilated at 2352 and pushed to a living female in the ADÁN position with restitution to ROT. The anterior shoulder delivered spontaneously and the corpus immediately followed. The baby was placed skin to skin active and crying. The cord was clamped x2 and cut by the FOB. A 3-vessel cord was noted. The placenta delivered spontaneously at 0003 with noted trailing membranes that were removed with 2 manual sweeps. Uterine hemostasis was achieved via rapid infusion of IV Pitocin and fundal massage. The vagina, cervix and perineum were inspected and found to be intact. Mom plans to formula feed and they are naming her "Jose." Both mom and baby are in stable condition. All counts of instruments and sponges are correct. CHEY JO CNM Dec 08, 2020 00:33
--- NOTE | 2020-12-08 01:55 | IPNPDOC ---
Text Note Date of Service The patient was seen on 12/08/20. NOTE Subjective: Patient denies preeclamptic symptoms. Objective: Noted increase in blood pressures since delivery: BP: 146/79; 155/82; 155/91; 160/78 Assessment: possible GHTN vs preeclamptic diagnosis Plan: preeclamptic labs ordered. Continue to monitor BP's more frequently . Continue to monitor fo preeclamptic symptoms. Unable to get spot urine at this time due to vaginal bleeding from delivery. CHEY ORDONEZ CNM Dec 08, 2020 01:55
[2020-12-08 03:25] LABS: HEMATOCRIT 35.6 % (36.0-47.0); HEMOGLOBIN 11.2 g/dl (12.0-15.5); MEAN CORPUSCULAR HEMOGLOBIN 27.9 pg (27.0-33.0); MEAN CORPUSCULAR HGB CONC 31.5 g/dl (32.0-36.5); MEAN CORPUSCULAR VOLUME 88.6 fl (80.0-96.0); PLATELET COUNT, AUTOMATED 227 10^3/uL (150-450); RED BLOOD COUNT 4.02 10^6/uL (4.00-5.40); WHITE BLOOD COUNT 16.7 10^3/uL (4.0-10.0)
[2020-12-08 03:54] LABS: ALT/SGPT 17 U/L (12-78); BILIRUBIN,TOTAL 0.2 MG/DL (0.2-1.0); CREATININE FOR GFR 0.76 MG/DL (0.55-1.30); GLOMERULAR FILTRATION RATE > 60.0 (>60); LDH LACTATE DEHYDROGENASE 147 U/L (84-246); URIC ACID 4.6 MG/DL (2.6-6.0)
[2020-12-08] MEDS: PRENATAL VITAMINS CHEWABLE TABLET PO SCH (08:08)
--- NOTE | 2020-12-08 15:50 | IPNPDOC ---
Progress Note Date of Service: Dec 08, 2020 Day#: 1 Progress Note SUBJECT: Kaylie is a 30-year-old female who is now a who presented to L&D for an induction of labor. She received IV pain medication for labor pain. She had a vaginal delivery of a female. Right after delivery she was noted to have 4 elevated BPs with one severe range. She denies any preeclamptic symptoms. Currently formula feeding. OBJECTIVE: VITAL SIGNS: Within normal limits, afebrile. Alert and oriented times three. Sitting up in bed eating breakfast. Breath sounds clear to auscultation. Abdomen: Fundus firm at U-2. Soft, NTTP. Minimal lochia. ASSESSMENT: Day 1 PLAN: 1. Continue to monitor BP's, which have been normal since she has been on with normal Preeclamptic labs. 2. Continue supportive nursing care. 3. Anticipate discharge tomorrow. VS, I&O, 24H, Fishbone Vital Signs/I&O Vital Signs Date Time Temp Pulse Resp B/P (MAP) Pulse Ox O2 Delivery O2 Flow Rate FiO2 12/08/20 06:00 97.0 64 18 102/51 (68) 12/08/20 02:12 96 Room Air I&O- Last 24 Hours up to 6 AM 12/08/20 06:00 Output Total 600 ml Balance -600 ml Laboratory Data 24H LABS Laboratory Tests 2 12/08/20 03:11: Nucleated Red Blood Cells % (auto) 0.0, Glomerular Filtration Rate > 60.0, Uric Acid 4.6, Total Bilirubin 0.2, Aspartate Amino Transf (AST/SGOT) 10, Alanine Aminotransferase (ALT/SGPT) 17, Lactate Dehydrogenase 147 CBC/BMP Laboratory Tests 12/08/20 03:11 CHEY ORDONEZ CNM Dec 08, 2020 15:50
[2020-12-09 06:00] VITALS: BP 125/83
[2020-12-09] MEDS: PRENATAL VITAMINS CHEWABLE TABLET PO SCH (09:00)
== END 2020-12-09 13:12 | disposition home or self-care (01) | DRG 541 ==
LOC: M LDI 08:26 → M OBS 12-08 01:57
PROVIDERS: ADMIT Advanced Practice Midwife; ATTEND Advanced Practice Midwife
PROC: 10E0XZZ Delivery of Products of Conception, External Approach (ICD-10-PCS; principal; 2020-12-07)
PROC: 10D17Z9 Manual Extraction of Products of Conception, Retained, Via Natural or Artificial Opening (ICD-10-PCS; 2020-12-07)
PROC: 3E0P7GC Introduction of Other Therapeutic Substance into Female Reproductive, Via Natural or Artificial Opening (ICD-10-PCS; 2020-12-07)
DX: O73.1 Retained portions of placenta and membranes, without hemorrhage (principal); Z37.0 Single live birth; Z3A.39 39 weeks gestation of pregnancy

== ENCOUNTER → 2021-04-22 | Outpatient (REF) | payer OTHER | LOC: M SFHCWAGY 19:19 | PROVIDERS: ATTEND Advanced Practice Midwife | DX: Z01.419 Encounter for gynecological examination (general) (routine) without abnormal findings (principal); Z12.4 Encounter for screening for malignant neoplasm of cervix ==

== ENCOUNTER → 2021-09-28 | Outpatient (CLI) | payer OTHER | LOC: M PLALAB 11:05 | PROVIDERS: ATTEND Advanced Practice Midwife | DX: Z34.81 Encounter for supervision of other normal pregnancy, first trimester (principal) ==

== ENCOUNTER → 2021-12-20 | Outpatient (CLI) | payer OTHER | LOC: M WHC 10:33 | PROVIDERS: ATTEND Obstetrics & Gynecology | DX: Z34.92 Encounter for supervision of normal pregnancy, unspecified, second trimester (principal) ==

== ENCOUNTER → 2022-01-06 | Outpatient (REF) | payer OTHER | LOC: M PLALAB 09:02 | PROVIDERS: ATTEND Advanced Practice Midwife | DX: Z34.92 Encounter for supervision of normal pregnancy, unspecified, second trimester (principal) ==

== ENCOUNTER → 2022-02-04 | Outpatient (CLI) | payer OTHER ==
[2022-02-04 13:22] LABS: HEMATOCRIT 36.7 % (36.0-47.0); HEMOGLOBIN 12.3 g/dl (12.0-15.5); MEAN CORPUSCULAR HEMOGLOBIN 30.6 pg (27.0-33.0); MEAN CORPUSCULAR HGB CONC 33.5 g/dl (32.0-36.5); MEAN CORPUSCULAR VOLUME 91.3 fl (80.0-96.0); PLATELET COUNT, AUTOMATED 230 10^3/uL (150-450); RED BLOOD COUNT 4.02 10^6/uL (4.00-5.40); WHITE BLOOD COUNT 10.4 10^3/uL (4.0-10.0)
== END ==
LOC: M PLALAB 10:21
PROVIDERS: ATTEND Advanced Practice Midwife
DX: Z34.92 Encounter for supervision of normal pregnancy, unspecified, second trimester (principal); Z3A.00 Weeks of gestation of pregnancy not specified

== ENCOUNTER 2022-02-10 14:19 | Outpatient (CLI) | payer OTHER ==
[~2022-02-10] VITALS: Ht 177.8 cm; Wt 93.9 kg
[2022-02-10 14:50] VITALS: BP 130/62
[2022-02-10] MEDS ORDERED: HOME MED LIST COMPLETE! XX SCH (15:00)
[2022-02-10 15:03] VITALS: BP 130/62
[2022-02-10 16:24] VITALS: BP 116/57
[2022-02-10 17:39] VITALS: BP 121/57
[2022-02-10 18:08] VITALS: BP 122/61
== END 2022-02-10 18:15 | disposition home or self-care (01) ==
LOC: M LDO 14:19
PROVIDERS: ATTEND Obstetrics & Gynecology
DX: O60.03 Preterm labor without delivery, third trimester (principal); O26.893 Other specified pregnancy related conditions, third trimester; R10.2 Pelvic and perineal pain; Z3A.27 27 weeks gestation of pregnancy

== ENCOUNTER 2022-02-18 09:30 | Outpatient (CLI) | payer OTHER ==
[~2022-02-18] VITALS: Ht 177.8 cm; Wt 92.0 kg
[2022-02-18 09:47] VITALS: BP 128/59
[2022-02-18] MEDS ORDERED: BENA25CA4 PO (09:59)
[2022-02-18] MEDS ORDERED: OFIR10IN IV (09:59)
[2022-02-18] MEDS ORDERED: ACET500P3 PO (10:00)
[2022-02-18 11:09] VITALS: BP 117/56
[2022-02-18 12:50] VITALS: BP 108/51
== END 2022-02-18 13:25 | disposition home or self-care (01) ==
LOC: M LDO 09:30
PROVIDERS: ATTEND Obstetrics & Gynecology
DX: O26.893 Other specified pregnancy related conditions, third trimester (principal); R10.30 Lower abdominal pain, unspecified; Z3A.28 28 weeks gestation of pregnancy

== ENCOUNTER → 2022-04-13 | Outpatient (REF) | payer OTHER ==
[~2022-04-13] MED LIST changes: +ACET500P3 PO; +BENA25CA4 PO; +OFIR10IN IV
== END ==
LOC: M SFHCWAGY 17:05
PROVIDERS: ATTEND Specialist
DX: Z34.83 Encounter for supervision of other normal pregnancy, third trimester (principal)

== ENCOUNTER 2022-05-13 05:00 | Inpatient (IN) | payer OTHER ==
[2022-05-13] VITALS (15 sets, daily range): BP systolic 104–161; BP diastolic 55–95
[~2022-05-13] VITALS: Ht 177.8 cm; Wt 100.5 kg
[2022-05-13 07:11] LABS: HEMATOCRIT 36.3 % (36.0-47.0); HEMOGLOBIN 12.4 g/dl (12.0-15.5); MEAN CORPUSCULAR HEMOGLOBIN 29.3 pg (27.0-33.0); MEAN CORPUSCULAR HGB CONC 34.2 g/dl (32.0-36.5); MEAN CORPUSCULAR VOLUME 85.8 fl (80.0-96.0); PLATELET COUNT, AUTOMATED 220 10^3/uL (150-450); RED BLOOD COUNT 4.23 10^6/uL (4.00-5.40); WHITE BLOOD COUNT 12.4 10^3/uL (4.0-10.0)
[2022-05-13] MEDS ORDERED: HOME MED LIST COMPLETE! XX SCH (07:45)
[2022-05-13] MEDS ORDERED: PROMETHAZINE 25MG/ML 1ML VIAL IV PRN (10:05)
[2022-05-13] MEDS ORDERED: BUTORPHANOL 2 MG/ML INJ (J0595) IV ONE ×2 (10:05→14:45)
[2022-05-13] MEDS: miSOPROStol 50MCG 1/2 TABLET PO SCH ×4 (10:26→21:00)
[2022-05-13] MEDS ORDERED: OXYTOCIN 30 UNITS IN 0.9% NaCl 500ML IV BAG (J2590) As Ordered ONE (16:24)
[2022-05-13] MEDS ORDERED: LIDOCAINE 1% MDV 20ML VIAL INFIL PRN (16:25)
[2022-05-13] MEDS ORDERED: TRANEXAMIC ACID INJection 1,000 MG in NS 100 ML IV PRN (16:25)
[2022-05-13] MEDS ORDERED: METHYLERGONOVINE MALEATE 0.2 MG/ML VIAL (J2210) IM PRN (16:25)
[2022-05-13] MEDS ORDERED: OXYTOCIN DRIP 30 UNITS in IV 1 EA IV PRN (16:25)
[2022-05-13] MEDS ORDERED: CARBOPROST TROMETHAMINE 250 MCG/ML AMP IM PRN (16:25)
[2022-05-13 16:57] LABS: CORD GAS ABE A 0.4; CORD GAS ABE V -2.8; CORD GAS HCO3 V 23.3 MEQ/L; CORD GAS O2 SAT A 82.6 %; CORD GAS O2 SAT V 59.8 %; CORD GAS PCO2 A 40.1 mmHg; CORD GAS PCO2 V 45.2 mmHg; CORD GAS PH A 7.412 UNITS; CORD GAS PH V 7.331 UNITS; CORD GAS PO2 A 35.1 mmHg; CORD GAS PO2 V 24.5 mmHg; CORD GAS SBC A 24.4 MEQ/L; CORD GAS SBC V 21.1 MEQ/L; CORD GAS TCO2 A 26.2 MEQ/L; CORD GAS TCO2 V 24.7 MEQ/L
[2022-05-13] MEDS ORDERED: DOCUSATE SODIUM 100MG CAPSULE PO PRN (17:05)
[2022-05-13] MEDS ORDERED: ACETAMINOPHEN TAB 650MG DOSE (2X325MG) PO PRN (17:05)
[2022-05-13] MEDS ORDERED: RHOGAM 300 MCG (1500 IU) INJ (J2790) IM SCH (17:05)
[2022-05-13] MEDS ORDERED: IBUPROFEN 800 MG TAB PO PRN (17:05)
[2022-05-13] MEDS ORDERED: IBUPROFEN 600MG TAB PO PRN (17:05)
[2022-05-13] MEDS ORDERED: METHYLERGONOVINE MALEATE 0.2 MG TAB PO PRN (17:05)
[2022-05-13] MEDS ORDERED: ACETAMINOPHEN 500 MG TAB PO PRN (17:05)
[2022-05-13] MEDS ORDERED: DIBUCAINE 1% OINTMENT 30GM TOP PRN (17:05)
[2022-05-13] MEDS ORDERED: MOM 30ML SUSPENSION UDC PO PRN (17:05)
[2022-05-13] MEDS ORDERED: OXYTOCIN DRIP 30 UNITS in IV 1 EA IV SCH ×4 (17:05)
[2022-05-14] MEDS: miSOPROStol 50MCG 1/2 TABLET PO SCH ×4 (01:00→13:00)
[2022-05-14 06:20] VITALS: BP 122/57
[2022-05-14] MEDS: PRENATAL VITAMINS CHEWABLE TABLET PO SCH (09:00)
[2022-05-14 18:00] VITALS: BP 119/64
[2022-05-15 06:31] VITALS: BP 108/55
[2022-05-15] MEDS: PRENATAL VITAMINS CHEWABLE TABLET PO SCH ×2 (09:00→09:15)
[2022-05-15] MEDS ORDERED: MEASLES,MUMPS,RUBELLA VACCINE INJ (MMR-II) (90707) SC.IMMUN ONE (09:00)
== END 2022-05-15 14:35 | disposition home or self-care (01) | DRG 560 ==
LOC: M LDO 05:00 → M LDI 05:56 → M OBS 19:46
PROVIDERS: ADMIT Specialist; ATTEND Obstetrics & Gynecology
PROC: 10E0XZZ Delivery of Products of Conception, External Approach (ICD-10-PCS; principal; 2022-05-13)
DX: O48.0 Post-term pregnancy (principal); Z3A.40 40 weeks gestation of pregnancy; Z37.0 Single live birth